=== PATIENT | female | born 1960 | race Caucasian/White ===

== ENCOUNTER 2021-04-23 09:58 | Observation (INO) ==
[2021-04-23] MEDS ORDERED: Ondansetron 4 MG/2 ML VIAL IVP ONE (10:00)
[2021-04-23] MEDS ORDERED: Morphine Sulfate 2 MG/ML SYRINGE IVP ONE (10:00)
[2021-04-23 10:18] LABS: Basophils % 0.4 %; Eosinophils # 0.1 K/mcL (0.0-0.6); Eosinophils % 1.7 %; Hematocrit 37.8 % (35.3-44.9); Hemoglobin 13.2 g/dL (11.5-15.4); Immature Granulocytes % 0.3 % (0-4); Lymphocytes # 2.2 K/mcL (0.6-4.6); Mean Corpuscular HGB Conc 34.9 g/dL (31.6-35.5); Mean Corpuscular Hemoglobin 32.7 pg (28.0-33.3); Mean Corpuscular Volume 93.6 fL (83.0-100.0); Mean Platelet Volume 9.5 fL (9.4-12.4); Monocytes # 0.8 K/mcL (0.0-1.3); Monocytes % 10.6 %; Neutrophils # 4.1 K/mcL (1.6-8.9); Platelet Count 249 K/mcL (140-400); Red Blood Count 4.04 M/mcL (3.82-4.97); Red Cell Distribution Width 11.4 % (11.5-14.5); White Blood Count 7.2 K/mcL (4.3-11.1)
[2021-04-23 10:20] LABS: INR 1.1; Prothrombin Time 12.3 Seconds (9.4-12.1)
[2021-04-23 10:23] LABS: Activated Partial Thrombo Time 32.8 Seconds (26.0-36.0)
[2021-04-23 10:30] LABS: BUN/Creatinine Ratio 20 (6-26); Blood Urea Nitrogen 20 mg/dL (8-23); Calcium 10.2 mg/dL (8.6-10.3); Carbon Dioxide 23 mEq/L (23-29); Chloride 101 mEq/L (98-107); Glucose 114 mg/dL (70-105); Osmolality,Calculated 287 (280-300); Potassium 3.4 mEq/L (3.5-5.1); Sodium 137 mEq/L (136-145); eGFR For African Americans > 60 (> 60); eGFR For Non-African Americans 56 (> 60)
[2021-04-23 10:44] LABS: Troponin I < 0.03 ng/mL (< 0.04)
[2021-04-23] MEDS ORDERED: MOM Conc 10 ML UD.LIQ PO PRN (14:03)
[2021-04-23] MEDS ORDERED: Mag Hydrox/Al Hydrox/Simeth 30 ML UDC PO PRN (14:03)
[2021-04-23] MEDS ORDERED: Acetaminophen 325 MG TABLET PO PRN (14:03)
[2021-04-23] MEDS ORDERED: Naloxone 0.4 MG/ML INJ IVP PRN (14:03)
[2021-04-23] MEDS ORDERED: Ondansetron 4 MG/2 ML VIAL IVP PRN (14:03)
[2021-04-23] MEDS: 0.9 % Sodium Chloride 1,000 ML IVC SCH ×2 (14:25→23:24)
[2021-04-23 17:32] LABS: Adenovirus Not Detected (Not Detect); Bordetella Pertussis Not Detected (Not Detect); Chlamydophila pneumoniae Not Detected (Not Detect); Coronavirus 229E Not Detected (Not Detect); Coronavirus HKU1 Not Detected (Not Detect); Coronavirus NL63 Not Detected (Not Detect); Coronavirus OC43 Not Detected (Not Detect); Human Metapneumovirus Not Detected (Not Detect); Human Rhinovirus/Enterovirus Not Detected (Not Detect); Influenza A Subtype 2009 H1 Not Detected (Not Detect); Influenza B Not Detected (Not Detect); Mycoplasma pneumoniae Not Detected (Not Detect); Parainfluenza Virus 1 Not Detected (Not Detect); Parainfluenza Virus 2 Not Detected (Not Detect); Parainfluenza Virus 3 Not Detected (Not Detect); Parainfluenza Virus 4 Not Detected (Not Detect); Respiratory Syncytial Virus Not Detected (Not Detect); SARS-CoV-2 Not Detected (Not Detect)
[2021-04-23] MEDS: *HR* HYDROcodone/Acet 10/325 mg TABLET PO PRN (19:33)
[2021-04-23] MEDS ORDERED: tiZANidine 4 MG TABLET PO SCH (21:00)
[2021-04-24] MEDS: *HR* HYDROcodone/Acet 10/325 mg TABLET PO PRN ×2 (04:14→12:30)
[2021-04-24] MEDS ORDERED: GuaiFENesin Liq 200 MG/10 ML UDC PO PRN (04:20)
[2021-04-24 07:02] VITALS: BP 128/79
[2021-04-24 07:42] LABS: Basophils % 0.2 %; Eosinophils # 0.2 K/mcL (0.0-0.6); Hemoglobin 11.4 g/dL (11.5-15.4); Immature Granulocytes % 0.4 % (0-4); Lymphocytes # 1.9 K/mcL (0.6-4.6); Lymphocytes % 33.7 %; Mean Corpuscular HGB Conc 32.6 g/dL (31.6-35.5); Mean Corpuscular Hemoglobin 32.2 pg (28.0-33.3); Mean Corpuscular Volume 98.9 fL (83.0-100.0); Mean Platelet Volume 9.7 fL (9.4-12.4); Monocytes # 0.5 K/mcL (0.0-1.3); Monocytes % 9.4 %; Platelet Count 205 K/mcL (140-400); Red Blood Count 3.54 M/mcL (3.82-4.97); Red Cell Distribution Width 11.9 % (11.5-14.5); Segmented Neutrophils % 53.3 %; White Blood Count 5.6 K/mcL (4.3-11.1)
[2021-04-24 07:57] LABS: BUN/Creatinine Ratio 17 (6-26); Blood Urea Nitrogen 17 mg/dL (8-23); Calcium 8.8 mg/dL (8.6-10.3); Carbon Dioxide 26 mEq/L (23-29); Chloride 106 mEq/L (98-107); Cholesterol 154 mg/dL (< 200); Glucose 92 mg/dL (70-105); HDL Cholesterol 51 mg/dL (40-59); LDL Cholesterol,Calculated 87 mg/dL (< 100); Osmolality,Calculated 285 (280-300); Sodium 137 mEq/L (136-145); Triglycerides 79 mg/dL (< 150); eGFR For African Americans > 60 (> 60); eGFR For Non-African Americans 56 (> 60)
[2021-04-24] MEDS ORDERED: Aspirin Enteric Coated 81 MG Tablet PO SCH (09:00)
[2021-04-24] MEDS ORDERED: Loratadine 10 MG TABLET PO SCH (09:00)
== END 2021-04-24 15:31 | disposition home or self-care (01) ==
LOC: EMEROOPIK 09:58 → INPPIK 09:58
PROVIDERS: ADMIT Family Medicine; ATTEND Family Medicine